=== PATIENT | male | born 1950 | race Two or more races ===

== ENCOUNTER 2016-05-18 13:17 | Outpatient (CLI) | payer MEDICARE, MEDICAID ==
[~2016-05-18 13:17] MED LIST: AMLO10TA2 PO; CALC500T13 PO; DOCU-25 PO; GABA-534 PO; HYDR-4075 PO; HYDR-4076 PO; OXYC1TAB8 PO; POLY17PO4 PO; PYRI50TA9 PO; SIME180C6 PO; TRAZ150T75 PO; ZOLP10TA6 PO
== END 2016-05-18 23:59 | disposition home health service (06) ==
LOC: WOU 13:17
PROVIDERS: ATTEND Surgery
DX: L89.153 Pressure ulcer of sacral region, stage 3 (principal); T81.89XA Other complications of procedures, not elsewhere classified, initial encounter; Z93.3 Colostomy status; G82.20 Paraplegia, unspecified; E11.22 Type 2 diabetes mellitus with diabetic chronic kidney disease; I12.0 Hypertensive chronic kidney disease with stage 5 chronic kidney disease or end stage renal disease; N18.6 End stage renal disease; Z99.2 Dependence on renal dialysis; Z83.3 Family history of diabetes mellitus; D64.9 Anemia, unspecified
CPT/HCPCS: 11042; 11043; A6402